=== PATIENT | male | born 2000 | race Caucasian/White ===

== ENCOUNTER 2024-01-08 02:10 | Emergency (ER) | payer OTHER ==
[2024-01-08] MEDS: Diphtheria,Pertussis(Acell),Tetanus Vaccine 0.5 ML Syringe IM ONE (03:40)
== END 2024-01-08 03:46 | disposition home or self-care (01) ==
LOC: MW.ED 02:10
DX: T22.212A Burn of second degree of left forearm, initial encounter (principal); Z23 Encounter for immunization; X13.1XXA Other contact with steam and other hot vapors, initial encounter; Y92.65 Oil rig as the place of occurrence of the external cause; Y99.0 Civilian activity done for income or pay
CPT/HCPCS: 16020; 90471; 90715; 99283-25